=== PATIENT | male | born 1985 | race Caucasian/White ===

== ENCOUNTER 2021-02-19 10:39 | Emergency (ER) | payer OTHER, SELFPAY ==
[2021-02-19 11:00] VITALS: BP 118/78; PULSE 67; RESP 18; TEMP 36.8; O2SAT 98
--- NOTE | 2021-02-19 11:43 | ED.EAR ---
HPI - Ear Problem General Chief complaint: Ear Stated complaint: ear Time Seen by Provider: 02/19/21 11:33 Source: patient and RN notes reviewed Mode of arrival: ambulatory Limitations: no limitations History of Present Illness HPI Narrative: Patient presents today complaint of left ear pain since yesterday with muffled hearing. Denies drainage, fever, sore throat, congestion, cough, rhinorrhea. He has been taking ibuprofen with some relief and currently rates his pain 4/10. He has been vaccinated against COVID-19. No recent swimming. MD Complaint: ear pain and decreased hearing Related Data Allergies Allergy/AdvReac Type Severity Reaction Status Date / Time No Known Allergies Allergy Unknown Verified 02/19/21 11:09 Review of Systems Review of Systems: CONSTITUTIONAL: Denies body aches, fever, chills, or sweats. EYES: Denies visual changes, redness, or discharge. ENT: Denies rhinorrhea, congestion, sore throat. + Left ear pain and muffled hearing CARDIOVASCULAR: Denies chest pain, palpitations, or edema. RESPIRATORY: Denies cough or dyspnea. GASTROINTESTINAL: Denies abdominal pain, nausea, vomiting, or diarrhea. GENITOURINARY: Denies dysuria or hematuria. SKIN: Denies rash, itching, or wounds. MUSCULOSKELETAL: Denies back pain, joint pain, or myalgia. NEUROLOGIC: Denies headache, numbness, tingling, or weakness. PSYCH: Denies depression or anxiety. [facility] Surgical History Surgical History (Updated 02/19/21 @ 11:44 by Lisa Hughes, [facility], ) History of appendectomy Social History Social History Gender identity (if verbalized by the patient): Male Comments At time of signature, I have reviewed and agree with nursing past medical, surgical, social and family history unless otherwise noted. Please see nursing chart for further information. There is no relevant family history pertinent to the presenting complaint Exam Narrative: GENERAL: Well-appearing, well-nourished, and in no acute distress. HEAD: Normocephalic, atraumatic. EYES: EOMI. No redness or drainage. Conjunctivae normal. ENT: Mucous membranes pink and moist. Nares clear. No rhinorrhea. TMs normal bilaterally. Left ear canal is erythematous and mildly edematous with bright green drainage to the canal. Movement and tragal tenderness on the left. Throat normal. Uvula midline. NECK: Normal AROM. Supple. No lymphadenopathy. CHEST: No respiratory distress. EXTREMITIES: Normal range of motion. No edema. SKIN: Warm, dry, no rash. Capillary refill normal. Normal skin turgor. NEURO: No focal deficits. Alert and oriented x3. Gait steady. PSYCH: Normal affect. No signs of depression or anxiety. Course Vital Signs Vital signs: Vital Signs Temperature 98.2 F 02/19/21 11:00 Pulse Rate 67 02/19/21 11:00 Respiratory Rate 18 02/19/21 11:00 Blood Pressure 118/78 02/19/21 11:00 Pulse Oximetry 98 02/19/21 11:00 Temperature 98.2 F 02/19/21 11:00 Pulse Rate 67 02/19/21 11:00 Respiratory Rate 18 02/19/21 11:00 Blood Pressure 118/78 02/19/21 11:00 Pulse Oximetry 98 02/19/21 11:00 Reviewed Medical Decision Making Differential Diagnosis Differential Diagnosis: Otitis media, otitis externa, ruptured TM, serous otitis, eustachian tube dysfunction, cerumen impaction Vital Signs Vital Signs: Vital Signs Temperature 98.2 F 02/19/21 11:00 Pulse Rate 67 02/19/21 11:00 Respiratory Rate 18 02/19/21 11:00 Blood Pressure 118/78 02/19/21 11:00 Pulse Oximetry 98 02/19/21 11:00 Temperature 98.2 F 02/19/21 11:00 Pulse Rate 67 02/19/21 11:00 Respiratory Rate 18 02/19/21 11:00 Blood Pressure 118/78 02/19/21 11:00 Pulse Oximetry 98 02/19/21 11:00 Critical Care Time Critical Care Time Critical Care Time: No Discharge Plan Discharge Clinical Impression: Left otitis externa Qualifiers: Otitis externa type: unspecified type Chronicity: acute Qualified Code(s): H60.502 - Unspecif
== END 2021-02-19 11:49 | disposition home or self-care (01) ==
PROVIDERS: Emergency Provider Nurse Practitioner; PCP Student in an Organized Health Care Education/Training Program
DX: H60.502 Unspecified acute noninfective otitis externa, left ear (principal)
CPT/HCPCS: 99213; G0463

== ENCOUNTER 2023-07-18 15:48 | Emergency (ER) | payer OTHER, SELFPAY ==
[2023-07-18 16:03] VITALS: BP 132/85; PULSE 88; RESP 18; TEMP 36.7; O2SAT 98
--- NOTE | 2023-07-18 16:03 | ED.URI ---
HPI - URI/Sore Throat General Chief Complaint: Upper Respiratory Infection Stated Complaint: Cough, Chest Congestion, Fever, Bodyache Time Seen by Provider: 07/18/23 16:03 History of Present Illness HPI Narrative: 38-year-old male presented for complaint of cough, fatigue, body aches. Endorses subjective fever and decreased appetite. Onset 2 days. Denies sick contacts. Denies shortness of breath, wheezing, vomiting, diarrhea. Not taking anything for symptoms. Test negative for COVID at home twice. Related Data Home Medications Medication Instructions Recorded Confirmed bupropion HCl 300 mg 24 hr tablet, 300 mg PO DAILY 07/18/23 07/18/23 extended release Allergies Allergy/AdvReac Type Severity Reaction Status Date / Time No Known Allergies Allergy Unknown Verified 07/18/23 16:05 Review of Systems Review of Systems: CONSTITUTIONAL: reports body aches, fever, chills. EYES: Denies visual changes, redness, or discharge. ENT: Denies rhinorrhea, congestion, sore throat or otalgia. CARDIOVASCULAR: Denies chest pain, palpitations, or edema. RESPIRATORY: reports cough Denies dyspnea. GASTROINTESTINAL: Denies abdominal pain, nausea, vomiting, or diarrhea. SKIN: Denies rash, itching, or wounds. MUSCULOSKELETAL: Denies back pain, joint pain, or myalgia. NEUROLOGIC: Denies headache PMFSH Past Medical History Medical History (Updated 07/18/23 @ 16:19 by Mary Lawler APRN) No pertinent past medical history Surgical History Surgical History History of appendectomy Social History Social History Gender identity (if verbalized by the patient): Male Exam Narrative: GENERAL: mildly Ill-appearing, no acute distress. EYES: conjunctivae clear ENT: Mucous membranes moist. TMs pearly eller with normal light reflex bilaterally; no tragal tenderness. Oropharynx not erythematous without lesions. Tonsils not enlarged and without exudate. No drooling, no hoarseness, no trismus, uvula midline. No tripod positioning, hot potato voice, or soft palate swelling. NECK: Supple. No lymphadenopathy CHEST: Clear to auscultation, breath sounds equal. No respiratory distress, speaks in full sentences. HEART: Regular rate and rhythm. No murmur heard. SKIN: Warm, dry, no rash. NEURO: Alert and oriented x3. Course Course Emergency Course: Patient is aware of diagnosis, understands and agrees to treatment plan. Anticipatory guidance given. Patient agrees to follow-up as directed and is aware of reasons to seek care at the emergency department. Portions of this record may have been created with voice recognition software Level of Care: Express Care Visit Vital Signs Vital signs: Vital Signs Temperature 98.0 F 07/18/23 16:03 Pulse Rate 88 07/18/23 16:03 Respiratory Rate 18 07/18/23 16:03 Blood Pressure 132/85 07/18/23 16:03 Pulse Oximetry 98 07/18/23 16:03 Oxygen Delivery Room Air 07/18/23 16:03 Temperature 98.0 F 07/18/23 16:03 Pulse Rate 88 07/18/23 16:03 Respiratory Rate 18 07/18/23 16:03 Blood Pressure 132/85 07/18/23 16:03 Pulse Oximetry 98 07/18/23 16:03 Oxygen Delivery Room Air 07/18/23 16:03 MDM - URI/Sore Throat MDM Narrative Medical decision making narrative: Neg flu and covid result reviewed with pt. Advise supportive treatments. Patient is appropriate for outpatient treatment and follow-up. Differential Diagnosis Differential diagnosis: Likely upper respiratory infection, viral infection and pharyngitis Discharge Plan Discharge Clinical Impression: Viral infection Patient Disposition: Home, Self-Care Condition: Stable Instructions: Antibiotic Form, Upper Respiratory Infection (ED) Additional Instructions: Flu negative today. Your rapid covid test was negative today. It may be too early to detect the virus, theref
== END 2023-07-18 16:20 | disposition home or self-care (01) ==
PROVIDERS: Emergency Provider Nurse Practitioner Family; PCP Student in an Organized Health Care Education/Training Program
DX: B34.9 Viral infection, unspecified (principal); Z20.822 Contact with and (suspected) exposure to COVID-19
CPT/HCPCS: 87426; 87804; 99213; G0463